=== PATIENT | female | born 1970 | race Caucasian/White ===

== ENCOUNTER 2017-04-15 11:05 | Emergency (ER) | payer SELFPAY ==
[~2017-04-15] VITALS: Ht 154.9 cm; Wt 73.0 kg
[2017-04-15 11:06] VITALS: BP 141/97; PULSE 58; RESP 12; TEMP 98.2; O2SAT 98
--- NOTE | 2017-04-15 11:28 | PD ---
HPI Chief Complaint: Insurance Broker Problem/Complaint Time Seen by Provider: :17 Travel History International Travel<30 days: No Contact w/Intl Traveler<30days: No Traveled to known affect area: No History of Present Illness HPI 39-year-old female presents to the emergency Department with complaint of vaginal odor and vaginal spotting 4 months. Denies vaginal lesions or itching. Reports vaginal odor as if maybe she has a retained tampon. Reports left lower quadrant abdominal pain which has resided and she denies abdominal pain at this time. Also says she has an ache in her right lower back. Denies history of kidney stones. Denies dysuria, frequency. Denies fevers, vomiting. Reports normal bowel movement this morning. Vaginal spotting is a pink tinged discharge. Last menstrual period was end of March, but cannot specify dates. Possible exposure to STDs 4 months ago when her was cheating on her. Symptoms are mild in severity. He took ibuprofen this morning for symptom management. Does not have an established primary care provider. Has not followed up with a geophysical computer. History of tubal ligation. Denies other significant past medical history. Has no other medical complaints. No known allergies. No modifying factors or associated signs and symptoms. PFSH Past Medical History ?: Not Social History Tobacco Use: No Allergies-Medications (Allergen,Severity, Reaction): Coded Allergies: No Known Allergies (Unverified , 04/15/17) Reported Meds & Prescriptions Reported Meds & Active Scripts Active Ibuprofen 800 Mg Tab 800 Mg PO Q6HR PRN Keflex (Cephalexin) 500 Mg Cap 500 Mg PO Q12H 7 Days Flagyl (Metronidazole) 500 Mg Tab 500 Mg PO BID 7 Days Review of Systems Except as stated in HPI: all other systems reviewed are Neg Physical Exam Narrative GENERAL: Well-nourished, well-developed female patient, in no acute distress; afebrile, nontoxic-appearing SKIN: Warm and dry. HEAD: Atraumatic. Normocephalic. EYES: Pupils equal and round. No scleral icterus. No injection or drainage. ENT: Mucous membranes pink and moist. NECK: Trachea midline. No lymphadenopathy. CARDIOVASCULAR: Regular rate and rhythm. No murmur appreciated. RESPIRATORY: No accessory muscle use. Clear to auscultation. Breath sounds equal bilaterally. GASTROINTESTINAL: Abdomen soft, non-tender, nondistended. Bilateral pelvic region nontender to palpation. Hepatic and splenic margins not palpable. No guarding, rigidity, rebound tenderness. PELVIC: Exam done in the presence of a nurse. Speculum exam reveals nonedematous and nonerythematous cervix with white, mucopurulent, foul-smelling discharge. Positive whiff test. Bimanual exam reveals no palpable masses or adnexa tenderness, no uterine tenderness. No cervical motion tenderness. BACK: No CVA tenderness. MUSCULOSKELETAL: No obvious deformities. No clubbing. No cyanosis. No edema. NEUROLOGICAL: Awake and alert. No obvious cranial nerve deficits. Motor grossly within normal limits. Normal speech. PSYCHIATRIC: Appropriate mood and affect; insight and judgment normal. Data Data Last Documented VS Vital Signs Date Time Temp Pulse Resp B/P (MAP) Pulse Ox O2 Delivery O2 Flow Rate FiO2 04/15/17 11:06 98.2 58 12 141/97 (112) 98 Orders Orders Wet Prep Profile (04/15/17 11:28) Urinalysis - C+S If Indicated (04/15/17 11:28) Ed Urine Pregnancytest Poc (04/15/17 11:28) Gc And Chlamydia Pcr (04/15/17 11:28) Ibuprofen (Motrin) (04/15/17 12:45) Urine Culture (04/15/17 12:25) Ed Discharge Order (04/15/17 13:14) Labs Laboratory Tests Test 04/15/17 11:45 04/15/17 12:25 Clue Cells (Wet Prep) PRESENT Vaginal Trichomonas (Wet Prep) NONE SEEN Vaginal Yeast (Wet Prep) NONE SEEN Urine Color YELLOW Urine Turbidity HAZY Urine pH 6.0 Urine Specific Piercy 1.013 Urine Protein NEG mg/dL Urine Glucose (UA) NEG mg/dL Urine Ketones 40 mg/dL Urine Occult Blood NEG Urine Nitrite POS Urine Bilirubin NEG Urine Urobilinogen LESS THAN 2.0 MG/DL Urine Leukocyte Esterase NEG Urine RBC 1 /hpf Urine WBC 1 /hpf Urine Squamous Epithelial Cells 2 /hpf Urine Bacteria MOD /hpf Urine Mucus FEW /lpf Microscopic Urinalysis Comment CULTURE INDICATED MDM Medical Decision Making Medical Screen Exam Complete: Yes Emergency Medical Condition: Yes Medical Record Reviewed: Yes Differential Diagnosis Bacterial vaginosis, yeast infection, retained tampon, chlamydia, gonorrhea, cervicitis, PID Narrative Course 47-year-old female with foul-smelling vaginal discharge. Cervix is within normal limits and is nonedematous and nonerythematous. Suspecting bacterial vaginosis. Wet prep, chlamydia, gonorrhea, urinalysis, UPT ordered. 1223: Bacterial vaginosis positive. Trichomonas and vaginal yeast negative. 1315: Urinalysis is signs of infection. Chlamydia and gonorrhea pending. Keflex, Flagyl prescribed for home. Patient provided community resources for follow-up for gynecology. Patient was discussed with Dr. Roca and he agrees for discharge. Instructed patient to follow up with primary care provider. Patient verbalizes understanding and agreement with treatment plan. Patient is medically cleared and stable for discharge. Discussed reasons to return to the emergency department. Patient agrees with treatment plan. The patients vital signs are stable and the patient is stable for outpatient follow-up and treatment. Patient discharged home, stable and in no acute distress. Diagnosis Primary Impression: Bacterial vaginosis Additional Impression: UTI (urinary tract infection) Qualified Codes: N39.0 - Urinary tract infection, site not specified Referrals: [facility] Patient Instructions: Bacterial Vaginosis (ED), General Instructions, Urinary Tract Infection in Women (ED) Additional Instructions: Take antibiotics as prescribed and complete full course Maintain good personal hygiene Follow-up with primary care provider Follow-up with gynecology Return to the emergency department immediately with worsening of symptoms Med/Other Pt SpecificInfo: Prescription(s) given Scripts Ibuprofen (Ibuprofen) 800 Mg Tab 800 MG PO Q6HR Y for PAIN, #30 TAB 0 Refills Prov: Roseline Lal 04/15/17 Cephalexin (Keflex) 500 Mg Cap 500 MG PO Q12H for Infection for 7 Days, #14 CAP 0 Refills Prov: Roseline LalP 04/15/17 Metronidazole (Flagyl) 500 Mg Tab 500 MG PO BID for Infection for 7 Days, #14 TAB 1 Refill Prov: Roseline Lal 04/15/17 Disposition: 01 DISCHARGE HOME Condition: Stable Roseline Lal Apr 15, 2017 11:28
[2017-04-15] MEDS ORDERED: METR-1 PO (12:29)
[2017-04-15] MEDS ORDERED: IBUPROFEN 800 MG TAB PO ONE (12:45)
[2017-04-15 12:57] LABS: BACTERIA, URINE MOD /hpf; BLOOD, URINE NEG (NEG); COMMENT (UR) CULTURE INDICATED; CULTURE IF INDICATED CULTURE INDICATED; GLUCOSE,URINE NEG (NEG); KETONE, URINE 40 mg/dL (NEG); MUCUS URINE FEW /lpf (OCC); NITRITE,URINE POS (NEG); SQUAMOUS EPITHELIAL CELL URINE 2 /hpf (0-5); URINE COLOR YELLOW (YELLW/STRAW)
[2017-04-15] MEDS ORDERED: CEPH-460 PO (13:11)
[2017-04-15] MEDS ORDERED: IBUP1TAB7 PO (13:14)
[2017-04-15 13:31] VITALS: BP 140/86
[2017-04-15 16:25] LABS: CHLAMYDIA PCR NOT DETECTED (NOT DETECT); NEISSERIA PCR NOT DETECTED (NOT DETECT)
== END 2017-04-15 13:31 | disposition home or self-care (01) ==
LOC: NEPD 11:05
DX: N76.0 Acute vaginitis (principal); B96.89 Other specified bacterial agents as the cause of diseases classified elsewhere; N39.0 Urinary tract infection, site not specified; B96.20 Unspecified Escherichia coli [E. coli] as the cause of diseases classified elsewhere
CPT/HCPCS: 81001; 84703; 87077; 87086; 87186; 87210; 87491; 87591; 99284

== ENCOUNTER 2017-07-07 05:03 | Emergency (ER) | payer OTHER ==
[~2017-07-07] VITALS: Ht 154.9 cm; Wt 70.5 kg
[~2017-07-07 05:03] MED LIST: CEPH-460 PO; IBUP1TAB7 PO; METR-1 PO
[2017-07-07 05:15] VITALS: BP 135/98; PULSE 127; RESP 20; TEMP 98.7; O2SAT 96
[2017-07-07] MEDS ORDERED: SODIUM CHLOR 0.9% 1000 ML INJ 1,000 ML IV ONE (05:30)
--- NOTE | 2017-07-07 05:31 | PD ---
HPI Chief Complaint: Medical Clearance Time Seen by Provider: 05:13 Travel History International Travel<30 days: No Contact w/Intl Traveler<30days: No Traveled to known affect area: No History of Present Illness HPI Patient is a 47-year-old female presenting to the emergency Department under Figueroa's act. Patient flagged down a police superintendent, she reported that she didn' t know where she was, she is admittedly intoxicated. She is brought to the emergency department for that reason. Patient has no physical complaints, she denies any suicidal or homicidal ideations. She states she came to the area to be with her boyfriend and her boyfriend kicked her out. She reports that she is currently undomiciled. Patient denies any psychiatric history. She states she's had several alcoholic drinks this evening. She does not quantify it or offer any more information. She is fixated on the cost of this emergency department visit. Onset was fairly sudden, exacerbating factors include ingestion of alcohol. There are no alleviating factors. Patient denies nausea , vomiting, headache, abdominal pain, fever, chills PFSH Past Medical History Medical History: Denies Significant Hx ?: Not Tubal Ligation: Yes Social History Alcohol Use: Yes (occassional) Tobacco Use: No Substance Use: No Allergies-Medications (Allergen,Severity, Reaction): Coded Allergies: No Known Allergies (Unverified , 04/15/17) Reported Meds & Prescriptions Reported Meds & Active Scripts Active Review of Systems Except as stated in HPI: all other systems reviewed are Neg Psychiatric: Positive: Substance Abuse Physical Exam Narrative GENERAL: On nourished, alert, intoxicated-appearing female. Presenting in no acute distress. SKIN: Warm and dry. HEAD: Atraumatic. Normocephalic. EYES: Pupils equal and round. No scleral icterus. No injection or drainage. ENT: No nasal bleeding or discharge. Mucous membranes pink and moist. NECK: Trachea midline. No JVD. CARDIOVASCULAR: Tachycardic RESPIRATORY: No accessory muscle use. Clear to auscultation. Breath sounds equal bilaterally. GASTROINTESTINAL: Abdomen soft, non-tender, nondistended. Hepatic and splenic margins not palpable. MUSCULOSKELETAL: Extremities without clubbing, cyanosis, or edema. No obvious deformities. NEUROLOGICAL: Awake and alert. No obvious cranial nerve deficits. Motor grossly within normal limits. Five out of 5 muscle strength in the arms and legs. Normal speech. PSYCHIATRIC: Appropriate mood and affect Data Data Last Documented VS Vital Signs Date Time Temp Pulse Resp B/P (MAP) Pulse Ox O2 Delivery O2 Flow Rate FiO2 07/07/17 06:45 86 96 Room Air 07/07/17 05:15 98.7 20 135/98 (110) Orders Orders Alcohol (Ethanol) (07/07/17 05:22) Sodium Chlor 0.9% 1000 Ml Inj (Ns 1000 M (07/07/17 05:30) Iv Access Insert/Monitor (07/07/17 05:22) Labs Laboratory Tests Test 07/07/17 05:26 Ethyl Alcohol Level 220 MG/DL MDM Medical Decision Making Medical Screen Exam Complete: Yes Emergency Medical Condition: Yes Interpretation(s) Laboratory Tests Test 07/07/17 05:26 Ethyl Alcohol Level 220 MG/DL Vital Signs Date Time Temp Pulse Resp B/P (MAP) Pulse Ox O2 Delivery O2 Flow Rate FiO2 07/07/17 06:45 86 96 Room Air 07/07/17 05:15 98.7 127 20 135/98 (110) 96 Differential Diagnosis Intoxication versus metabolic abnormality versus mood disorder versus other Narrative Course She presented under a Annel's act due to public intoxication and not knowing where she lived. She does report that she is currently undomiciled. Patient was tachycardic on arrival. IV access established, patient will be given IV fluids, we'll check an alcohol level to determine when patient is safe to be discharged. Patient's heart rate was reassessed in the 80s. Her alcohol level is 223 patient will be kept in the emergency department until she is clinically sober and demonstrates safe decision making and can ambulate safely. Patient is medically cleared this time. Diagnosis Primary Impression: Alcohol intoxication Qualified Codes: F10.920 - Alcohol use, unspecified with intoxication, uncomplicated Referrals: [facility] Primary [facility] Physician [facility] Patient Instructions: Abuse of Alcohol (ED), Alcohol Intoxication (ED), General Instructions Additional Instructions: Avoid excessive intake of alcohol Follow-up with your primary doctor Follow-up and [facility] Return to emergency department for any new or worsening symptoms Med/Other Pt SpecificInfo: No Change to Meds Disposition: 01 DISCHARGE HOME Condition: Stable Aide Cano Jul 07, 2017 05:31
[2017-07-07 06:45] VITALS: PULSE 86; O2SAT 96
[2017-07-07 10:58] VITALS: BP 125/74; PULSE 102; RESP 16; O2SAT 100
== END 2017-07-07 11:54 | disposition home or self-care (01) ==
LOC: NEPD 05:03
DX: F10.920 Alcohol use, unspecified with intoxication, uncomplicated (principal); Y90.7 Blood alcohol level of 200-239 mg/100 ml; Z59.0 Homelessness
CPT/HCPCS: 80307; 96360; 99284; J7030